=== PATIENT | male | born 1985 | race Two or more races ===

== ENCOUNTER 2017-01-29 18:53 | Emergency (ER) | payer SELFPAY ==
[~2017-01-29] VITALS: Ht 167.6 cm; Wt 79.4 kg
[2017-01-29 19:04] VITALS: BP 136/96
== END 2017-01-29 22:39 | disposition left against medical advice (07) ==
LOC: ER 19:05
DX: F41.9 Anxiety disorder, unspecified (principal); Z53.21 Procedure and treatment not carried out due to patient leaving prior to being seen by health care provider
CPT/HCPCS: 93005